=== PATIENT | male | born 1950 | race Two or more races ===

== ENCOUNTER 2017-03-25 23:10 | Emergency (ER) | payer MEDICARE, OTHER ==
[~2017-03-25] VITALS: Ht 180.3 cm; Wt 87.1 kg
[~2017-03-25 23:10] MED LIST: LEVO25TA2; LORA1TAB82; MIRT15TA; OMEP20CA10
--- NOTE | 2017-03-25 23:15 | NUR ---
TO BED 7 A 67 YO MALE PATIENT BIB , C/O HEADACHE AND WEAKNESS SINCE THIS MORNING. PATIENT TOOK TYL 1GM AT 2100, NO RELIEF. VSS. NAD NOTED. AMBULATORY. COMFORT MEASURE RENDERED.
[2017-03-26] MEDS ORDERED: IV NS 0.9% 1,000 ML BAG IV ONE
[2017-03-26] MEDS ORDERED: METOCLOPRAMIDE HCL 10 MG/2 ML VIAL IV ONE
[2017-03-26] MEDS ORDERED: diphenhydrAMINE HCL 50 MG/ML VIAL ONE ×2 (00:21→00:55)
[2017-03-26] MEDS ORDERED: METOCLOPRAMIDE HCL 10 MG/2 ML VIAL ONE (00:22)
--- NOTE | 2017-03-26 00:37 | NUR ---
medicated patient as ordered.
[2017-03-26] MEDS ORDERED: diphenhydrAMINE HCL 50 MG/ML VIAL IV ONE ×2 (01:00)
--- NOTE | 2017-03-26 01:56 | NUR ---
patient is sleeping comfortably at this time. at bedside.
--- NOTE | 2017-03-26 02:25 | NUR ---
IV removed. Catheter intact and site benign. Pressure and 4x4 applied to site. No bleeding noted. Patient discharged to home in stable condition. Written and verbal after care instructions given. Patient verbalizes understanding of instruction. Patient is ambulatory with steady gait, instructed not to drive, accompanied by . no further complaints.
[2017-03-26 02:26] VITALS: BP 134/76
== END 2017-03-26 02:27 | disposition home or self-care (01) ==
LOC: ER 23:10
DX: R51 Headache (principal); J44.9 Chronic obstructive pulmonary disease, unspecified; K21.9 Gastro-esophageal reflux disease without esophagitis; F32.9 Major depressive disorder, single episode, unspecified; F41.9 Anxiety disorder, unspecified; E03.9 Hypothyroidism, unspecified; Z88.2 Allergy status to sulfonamides
CPT/HCPCS: 70450; 96361; 96374; 96375; 99284; A4606; J1200 ×2; J2765; J7030; Z7610